=== PATIENT | female | born 1960 | race Two or more races ===

== ENCOUNTER 2025-01-15 11:25 | Emergency (ER) | payer OTHER ==
[~2025-01-15] VITALS: Ht 154.9 cm; Wt 72.6 kg
[2025-01-15] MEDS ORDERED: ZESTRIL2.5 MG (11:50)
[2025-01-15] MEDS ORDERED: EZALLOR SPRINKLE5 MG (11:51)
[2025-01-15] MEDS ORDERED: BACITRACIN 28.35 GM OINT.TUBE TOP STA (14:19)
[2025-01-15] MEDS ORDERED: CEFAZOLIN SODIUM 1,000 MG VIAL IV STA (14:20)
[2025-01-15] MEDS ORDERED: CEFAZOLIN SODIUM 1,000 MG VIAL ONE (14:40)
== END 2025-01-15 15:48 | disposition home or self-care (01) ==
LOC: ER 11:28
DX: S80.212D Abrasion, left knee, subsequent encounter (principal)
CPT/HCPCS: 96365; 99282; J0690